=== PATIENT | male | born 1970 | race Caucasian/White ===

== ENCOUNTER 2019-03-18 03:08 | Emergency (ER) | payer OTHER ==
[2019-03-18] MEDS ORDERED: Lorazepam 2 MG/ML VIAL ONE (03:11)
[2019-03-18 03:27] LABS: #Basophils 0.1 thou/uL (0.0-0.2); #Eosinphils 0.2 thou/uL (0.0-0.7); #Lymphocytes 4.3 thou/uL (1.20-3.40); #Monocytes 0.7 thou/uL (0.11-0.59); #Neutrophils 7.1 thou/uL (1.40-6.50); %Basophils 1.1 % (0.0-1.0); %Eosinophils 1.9 % (0.0-10.0); %Lymphocytes 34.7 % (21.0-51.0); %Monocytes 5.9 % (0.0-10.0); %Neutrophils 56.5 % (42.0-75.0); Hemoglobin 16.2 g/dL (14.0-18.0); Mean Corpuscular HGB CONC 34.2 g/dL (32.0-36.0); Mean Corpuscular Hemoglobin 32.1 pg (27.0-31.0); Mean Corpuscular Volume 93.8 fL (78.0-98.0); Mean Platelet Volume 7.8 fL (7.4-10.4); Platelet Count 253 thou/uL (130-400); RBC Distribution Width 11.7 % (11.5-14.5); Red Blood Cell (RBC) Count 5.04 mill/uL (4.70-6.10); White Blood Cell (WBC) Count 12.5 thou/uL (4.8-10.8)
[2019-03-18 03:51] LABS: Anion Gap 14 mmol/L (10-20); BUN (Urea Nitrogen) 11 mg/dL (8.9-20.6); Calc. Creatinine Clearance 0 mL/min (70-130); Carbon Dioxide 26 mmol/L (22-29); Chloride 104 mmol/L (98-107); Potassium 3.7 mmol/L (3.5-5.1); Sodium 140 mmol/L (136-145)
[2019-03-18] MEDS ORDERED: Ondansetron PF 4 MG/2 ML Vial ONE (03:51)
[2019-03-18 03:52] LABS: ALT (SGPT) 19 U/L (8-55); AST (SGOT) 24 U/L (5-34); Albumin 4.6 g/dL (3.5-5.0); Alkaline Phosphatase 101 U/L (40-110); Bilirubin, Total 0.5 mg/dL (0.2-1.2); Calcium 9.6 mg/dL (7.8-10.44); Estimated GFR-MDRD Greater than 90; Globulin 3.1 g/dL (2.4-3.5); Protein, Total 7.7 g/dL (6.0-8.3)
[2019-03-18 03:54] LABS: Glucose 26 mg/dL (70-105)
[2019-03-18] MEDS ORDERED: Dextrose 50% Abboject 50 ML SYRINGE ONE (04:44)
== END 2019-03-18 06:02 | disposition home or self-care (01) ==
LOC: ERS 03:08
DX: E10.649 Type 1 diabetes mellitus with hypoglycemia without coma (principal); Z71.6 Tobacco abuse counseling; F17.210 Nicotine dependence, cigarettes, uncomplicated; Z79.4 Long term (current) use of insulin
CPT/HCPCS: 36416; 80053; 85025; 94760; 96361; 96374; 96375; 96376; 99406; J2060; J2405